=== PATIENT | male | born 1990 | race Caucasian/White ===

== ENCOUNTER 2019-07-28 11:27 | Emergency (ER) | payer OTHER ==
[~2019-07-28] VITALS: Ht 170.2 cm; Wt 69.9 kg
== END 2019-07-28 14:04 | disposition home or self-care (01) ==
LOC: EDBD 11:27 → ER 11:27
DX: K52.9 Noninfective gastroenteritis and colitis, unspecified (principal)

== ENCOUNTER 2022-04-18 12:14 | Emergency (ER) | payer OTHER ==
[~2022-04-18] VITALS: Ht 170.2 cm; Wt 68.0 kg
[2022-04-18] MEDS ORDERED: BENZONATATE200 M1 PO (16:12)
== END 2022-04-18 17:45 | disposition home or self-care (01) ==
LOC: ER 12:14
DX: J40 Bronchitis, not specified as acute or chronic (principal); Z20.828 Contact with and (suspected) exposure to other viral communicable diseases

== ENCOUNTER 2023-01-12 10:20 | Emergency (ER) | payer OTHER ==
[~2023-01-12] VITALS: Ht 167.6 cm; Wt 68.0 kg
[~2023-01-12 10:20] MED LIST: BENZONATATE200 M1 PO
== END 2023-01-12 15:31 | disposition home or self-care (01) ==
LOC: ER 10:20
DX: K52.9 Noninfective gastroenteritis and colitis, unspecified (principal)

== ENCOUNTER 2023-08-18 17:55 | Emergency (ER) | payer OTHER ==
[~2023-08-18] VITALS: Ht 170.2 cm; Wt 70.3 kg
[2023-08-18 19:21] LABS: HEMATOCRIT 38.7 % (39.0-48.0); HEMOGLOBIN 13.3 g/dL (13-16.00); MEAN CELL VOLUME 88.2 fL (80.0-100.00); MEAN CORPUSCULAR HEMOGLOBIN 30.2 pg (27.00-32.0); MEAN CORPUSCULAR HGB CONC 34.2 g/dl (32.0-36.0); PLATELET COUNT 204 K/uL (150-450); RED BLOOD COUNT 4.39 M/uL (4.00-6.00); RED CELL DISTRIBUTION WIDTH 13.9 % (11.5-14.5)
== END 2023-08-18 20:25 | disposition home or self-care (01) ==
LOC: ER 17:55
PROVIDERS: General Practice
DX: R07.0 Pain in throat (principal); Z20.822 Contact with and (suspected) exposure to COVID-19